=== PATIENT | male | born 1985 | race Caucasian/White ===

== ENCOUNTER 2022-08-05 23:56 | Emergency (ER) | payer OTHER ==
[~2022-08-05] VITALS: Ht 177.8 cm; Wt 90.7 kg
[~2022-08-05 23:56] MED LIST: CYCLOBENZAPRINE10 MG PO; Motrin,Rufen800 MG PO; ULTRAM50 MG PO
[2022-08-06] MEDS ORDERED: HYDROCODONE-AC1 EAC1 PO (01:06)
== END 2022-08-06 01:19 | disposition home or self-care (01) ==
LOC: ED 23:56
DX: K64.4 Residual hemorrhoidal skin tags (principal); Z90.89 Acquired absence of other organs